=== PATIENT | female | born 1945 | race Hispanic/Latino ===

== ENCOUNTER 2022-07-27 17:10 | Emergency (ER) | payer OTHER ==
[2022-07-27] MEDS ORDERED: MECLIZINE HCL 25 MG TABLET PO ONE (19:00)
[2022-07-27 19:07] LABS: BASOPHILS % (AUTO) 0.9 % (0.0-5.0); EOSINOPHILS % (AUTO) 1.2 % (0.0-8.0); HEMATOCRIT 39.8 % (36-48); LYMPHOCYTES % (AUTO) 19.9 % (21.0-51.0); MEAN CORPUSCULAR HEMOGLOBIN 32.8 pg (27.0-33.0); MEAN CORPUSCULAR HGB CONC 33.4 g/dL (32.0-36.0); MEAN CORPUSCULAR VOLUME 98.3 fL (79-99); MONOCYTES % (AUTO) 8.7 % (3.0-13.0); NEUTROPHILS % (AUTO) 68.7 % (40.0-77.0); PLATELET COUNT (AUTO) 160 K/uL (130-400); RED BLOOD CELL COUNT(AUTO) 4.05 MIL/uL (4.00-5.50); RED CELL DISTRIBUTION WIDTH 12.3 % (11.0-15.5); WHITE BLOOD COUNT (AUTO) 6.5 K/uL (4.8-10.8)
[2022-07-27 19:16] LABS: CREATININE 0.9 mg/dL (0.5-1.5); POTASSIUM 3.7 mmol/L (3.5-5.1)
[2022-07-27 19:26] LABS: ALBUMIN 3.1 g/dL (3.5-5.0); TOTAL PROTEIN, SERUM 6.1 g/dL (6.0-8.3)
[2022-07-27] MEDS ORDERED: IOHEXOL 350 MG/ML 100ML INFUS..BTL IV ONE (21:38)
[2022-07-27 22:44] VITALS: BP 122/73
[2022-07-27] MEDS ORDERED: MECL-262 PO (23:01)
[2022-07-27] MEDS ORDERED: ONDA4TAB10 PO (23:01)
== END 2022-07-27 23:30 | disposition home or self-care (01) ==
LOC: EDBD 17:10 → EDH 17:10
DX: S06.0XAA Concussion with loss of consciousness status unknown, initial encounter (principal); I10 Essential (primary) hypertension; E11.9 Type 2 diabetes mellitus without complications; W10.8XXA Fall (on) (from) other stairs and steps, initial encounter; Y93.01 Activity, walking, marching and hiking; Y92.89 Other specified places as the place of occurrence of the external cause; Y99.8 Other external cause status
CPT/HCPCS: 99285; 72125; 84484; 80053; 85025; 36415; 72100; 70496; 72131; 70498; 70450; 93005; Q9967